=== PATIENT | male | born 1950 | race Caucasian/White ===

== ENCOUNTER 2016-03-28 18:45 | Emergency (ER) | payer MEDICARE ==
[2016-03-28] MEDS ORDERED: METOCLOPRAMIDE HCL 5 MG/ML 2ML VIAL ONE (21:33)
[2016-03-28] MEDS ORDERED: KETOROLAC TROMETHAMINE 60 MG/2 ML VIAL ONE (21:33)
[2016-03-28] MEDS ORDERED: DIPHENHYDRAMINE HCL 50 MG/1 ML VIAL ONE (21:34)
[2016-03-28] MEDS ORDERED: DIAZEPAM 5 MG TABLET ONE (21:34)
== END 2016-03-28 22:06 | disposition home or self-care (01) ==
LOC: ED 18:45
DX: G43.909 Migraine, unspecified, not intractable, without status migrainosus (principal); M46.92 Unspecified inflammatory spondylopathy, cervical region; M19.90 Unspecified osteoarthritis, unspecified site; M79.7 Fibromyalgia; F17.210 Nicotine dependence, cigarettes, uncomplicated
CPT/HCPCS: 99282; 96372 ×3; 99283; J1200; J2765; J1885; A9270